=== PATIENT | female | born 1980 | race Hispanic/Latino ===

== ENCOUNTER 2016-12-29 13:59 | Emergency (ER) | payer OTHER ==
[~2016-12-29] VITALS: Ht 162.6 cm; Wt 71.2 kg
[~2016-12-29 13:59] MED LIST: BACLOFEN20 M1 PO; DOXYCYCLINE MO100 MG PO; FIORICET 300 MG1 CAP PO; FIORICET 325 MG1 TAB PO; FLEXERIL10 MG PO; MEDROL4 M2 PO; NASONEX0.05 MG/Ac NS; NORCO 325 MG-51 TAB PO; PERCOCET 325 MG1 TA2 PO; PERCOCET 5-3251 EACH PO; PREDNISONE 20MG20 MG PO; PREDNISONE20 M1 PO; PYRIDIUM200 MG PO; ROBAXIN-750750 M1 PO; TRAMADOL50 MG PO; VICODIN5-300 PO; VITAMIN C500 M3 PO
[2016-12-29] MEDS ORDERED: PERCOCET 5-3251 EACH PO (15:28)
--- NOTE | 2016-12-29 15:29 | ED NECK/BACK PAIN COMPLAINT ---
See Addendum History of Present Illness General Chief Complaint: Upper Respiratory Sx/Fever Stated Complaint: LBP/URI Source: patient, old records Exam Limitations: no limitations Vital Signs & Intake/Output Vital Signs & Intake/Output Vital Signs Date Time Temp Pulse Resp B/P Pulse O2 O2 Flow FiO2 Ox Delivery Rate 12/29 1536 97.7 89 18 115/67 97 Room Air 12/29 1517 99 12/29 1410 98.6 82 18 118/81 97 Room Air Allergies Coded Allergies: Penicillins (Severe, ANAPHYLAXIS 03/27/16) ibuprofen (From Motrin) (Intermediate, "SWELL UP" 03/27/16) Reconcile Medications Azithromycin (Zithromax) 250 MG TABLET 1 DP PO AD uri 2 the first day followed by 1 for days 2-5 Oxycodone HCl/Acetaminophen (Percocet 5-325 MG Tablet) 5 MG-325 MG TABLET 1 TAB PO TID PAIN Triage Note: PT TO ED FOR BILATERAL LOWER BACK PAIN WELL COLD LIKE SYMPTOMS. TENDER TO PALPATION ON L LOWER BACK. Triage Nurses Notes Reviewed? yes : No Patient currently breastfeeds: No HPI: 36-year-old female with chronic intermittent low back pain that started again 2 weeks ago. She has been seen here in the past for same. She is taking tramadol for her chronic pain without relief. It is throbbing aching severe sharp shooting reading the left lateral hip region. No recent trauma or injury. Patient also complains of URI symptoms as of the last 2 days, cough congestion runny nose, pressure in her sinuses left greater than right. Symptoms are moderate, no fever She has history of hysterectomy Past History Travel History Traveled to [place] past 21 day No Medical History Any Pertinent Medical History? 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 No Review of Systems Review of Systems Constitutional: Reports: see HPI. Eyes: Reports: no symptoms. Ears, Nose, Throat, Mouth: Reports: no symptoms. Respiratory: Reports: no symptoms. Cardiovascular: Reports: no symptoms. Gastrointestinal/Abdominal: Reports: no symptoms. Musculoskeletal: Reports: see HPI. Skin: Reports: no symptoms. Neurological/Psychological: Reports: no symptoms. All Other Systems: Reviewed and Negative Physical Exam Physical Exam Neck: normal inspection, supple, full range of motion, normal alignment Comments: Well-developed well-nourished no apparent distress. HEENT: Atraumatic, extraocular motion intact Mild clear rhinorrhea and tenderness of the frontal and maxillary sinus with clear rhinorrhea neck: Supple, no lymphadenopathy Back: Tenderness to the paravertebral musculature on the left side lower lumbar region with mild spasming noted. No midline tenderness. No deformity or signs of trauma. There is no rashes present. Range of motion is limited secondary to pain Straight leg raise is negative bilaterally. Bilateral lower extremities are neurovascularly intact with sensation and motor grossly intact. Gait is antalgic. Respiratory: No respiratory distress Abdomen: Soft nontender nondistended Extremities: No edema, full range of motion Neuro: Alert and oriented x3 Psych: Mood affect normal, normal memory normal judgment. Skin: Warm and dry, no rash on exposed skin Progress Differential Diagnosis: AAA, aortic dissection, C spine injury, carotid dissection, cauda equina syn, herniated disc, myofascial strain, pyelo/UTI, sciatica, spinal cord inj, thoracic outlet syn, T/L spine injury, ureterolithiasis Plan of Care: Current Medications Sig/Vinayak Start time Last Medication Dose Stop Time Status Admin Ketorolac 30 MG ONCE ONE 12/29 1530 UNVr Tromethamine 12/29 1531 (Toradol) Comments: Treated with IM Toradol abx for uri Departure Departure Disposition: HOME OR SELF CARE Condition: Stable Clinical Impression Primary Impression: Low back pain Qualifiers: Chronicity: acute Back pain laterality: left Sciatica presence: without sciatica Qualified Code: M54.5 - Low back pain Secondary Impressions: URI (upper respiratory infection) Qualifiers: URI type: unspecified URI Qualified Code: J06.9 - Acute upper respiratory infection, unspecified Referrals: UNKNOWN (PCP/Family) Additional Instructions: Take antibiotics for your infection as directed. Use [id number] multisystem cold medication as needed. Motrin and Tylenol as needed for fever. Drink plenty of fluids. Take medication for back pain and follow-up with your doctor tomorrow as scheduled Departure Forms: Customer Survey General Discharge Information Prescriptions: Current Visit Scripts Oxycodone HCl/Acetaminophen (Percocet 5-325 MG Tablet) 1 TAB PO TID #10 TAB Azithromycin (Zithromax) 1 DP PO AD #6 TAB 2 the first day followed by 1 for days 2-5
[2016-12-29] MEDS ORDERED: ZITHROMAX250 M2 PO (15:30)
[2016-12-29 15:36] VITALS: BP 115/67
== END 2016-12-29 15:38 ==
LOC: ERH 13:59
DX: M54.5 Low back pain (principal); J06.9 Acute upper respiratory infection, unspecified
CPT/HCPCS: 96372; J1885

== ENCOUNTER 2017-02-01 18:13 | Emergency (ER) | payer OTHER ==
[~2017-02-01 18:13] MED LIST changes: +ZITHROMAX250 M2 PO
[2017-02-01 18:42] LABS: ABSOLUTE BASOPHIL COUNT 0 /CUMM (0.0-0.2); ABSOLUTE EOSINOPHIL COUNT 0.1 /CUMM (0.0-0.7); ABSOLUTE LYMPH COUNT 2.4 /CUMM (1.2-3.4); ABSOLUTE MONOCYTE COUNT 0.4 /CUMM (0.10-0.60); BASOPHIL % 0.6 % (0.0-2.0); EOSINOPHIL % 0.8 % (0-5); GRANULOCYTE % 57.5 % (42.2-75.2); HEMATOCRIT 37.5 % (37-47); MEAN CORPUSCULAR HGB 30.3 PG (27.0-31.0); MEAN CORPUSCULAR HGB CONC 33.2 G/DL (33.0-37.0); MEAN CORPUSCULAR VOLUME 91.2 FL (81.0-99.0); MEAN PLATELET VOLUME 7.8 FL (7.4-10.4); PLATELET COUNT 210 /CUMM (130-400); RBC DISTRIBUTION WIDTH 12.3 % (11.5-14.5); RED BLOOD CELL CT 4.11 /CUMM (4.20-5.40); WHITE BLOOD CELL COUNT 6.9 /CUMM (4.8-10.8)
[2017-02-01] MEDS ORDERED: NABUMETONE500 M1 PO (18:47)
[2017-02-01] MEDS ORDERED: TRAMADOL HCL50 M1 PO (18:47)
--- NOTE | 2017-02-01 19:25 | ED GI/GU/ABDOMINAL COMPLAINT ---
History of Present Illness General Chief Complaint: Lower Extremity Injury Stated Complaint: PT BACK PAIN AND Source: patient Exam Limitations: no limitations Vital Signs & Intake/Output Vital Signs & Intake/Output Vital Signs Date Time Temp Pulse Resp B/P Pulse O2 O2 Flow FiO2 Ox Delivery Rate 02/01 2045 98.8 76 18 118/75 97 Room Air 02/015 99.0 85 22 121/70 96 Room Air ED Intake and Output 02/02 0000 02/01 1200 Intake Total Output Total Balance Patient 135 lb Weight Allergies Coded Allergies: Penicillins (Severe, ANAPHYLAXIS 03/27/16) ibuprofen (From Motrin) (Intermediate, "SWELL UP" 03/27/16) Reconcile Medications Nabumetone 500 MG TABLET 1 TAB PO BID PAIN (Reported) Oxycodone HCl/Acetaminophen (Percocet 5-325 MG Tablet) 5 MG-325 MG TABLET 1 TAB PO BID PAIN Tramadol HCl 50 MG TABLET 2 TAB PO Q6H PRN PAIN (Reported) Triage Note: PER PT BACK PAIN FOR MONTHS DENIES ANY SPECIFIC INJURY HAS SEEM PMD MONTHS AGO BUT ONLY WAS GIVEN PAIN MEDS NO IMAGING. PT REPORTS NO URINARY CO ASSOCIATED WITH PAIN AND HX OF HYST. Triage Nurses Notes Reviewed? yes ? n Is pt currently ? No Onset: Abrupt Duration: chronic pain Quality/Severity: moderate, sharpness, severe Radiation: no radiation No Modifying Factors: none HPI: 37-year-old female who comes into emergency room with complaints of chronic pain to her left lower back and left lower abdomen this been going on for over a year. Patient reports that she was diagnosed with endometriosis. Patient complete hysterectomy. Patient denies any fever chills vomiting. Denies any urinary symptoms. Patient reports the pain is also on a continuous basis. She comes into the emergency room for further evaluation today due to increased pain. Pain is consistent with previous pain. Denies any other associated symptoms at this time. (MADHURI RAM) Past History Travel History Traveled to [place] past 21 day No Medical History Any Pertinent Medical History? 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 No (MADHURI RAM) Review of Systems Review of Systems Constitutional: Reports: no symptoms. EENTM: Reports: no symptoms. Respiratory: Reports: no symptoms. Cardiovascular: Reports: no symptoms. GI: Reports: see HPI. Genitourinary: Reports: no symptoms. Musculoskeletal: Reports: see HPI. Skin: Reports: no symptoms. Neurological/Psychological: Reports: no symptoms. Hematologic/Endocrine: Reports: no symptoms. Immunologic/Allergic: Reports: no symptoms. All Other Systems: Reviewed and Negative (MADHURI RAM) Physical Exam Physical Exam General Appearance: well developed/nourished, no apparent distress, alert, awake Head: atraumatic, normal appearance Eyes: Bilateral: normal appearance, EOMI. Ears, Nose, Throat, Mouth: hearing grossly normal, moist mucous membrane Neck: normal inspection, full range of motion Respiratory: normal breath sounds, no respiratory distress Cardiovascular: regular rate/rhythm Gastrointestinal: soft, tenderness (llq) Back: normal inspection Extremities: normal range of motion Neurologic/Psych: awake, alert, oriented x 3, normal gait, normal mood/affect Skin: intact, normal color Core Measures ACS in differential dx? No Severe Sepsis Present: No Septic Shock Present: No (MADHURI RAM) Progress Differential Diagnosis: AMI, appendicitis, biliary colic, bowel obstruction, cholecystitis, diverticulitis, ectopic , gastritis, hepatitis, hernia, hemorrhoids, ischemic bowel, inflamm bowel dis, intrauterine , kidney stone, Cate-Ok tear, ovarian cyst, ovarian torsion, pancreatitis, PID/ cervicitis, peptic ulcer, PUD/GERD, perforated viscous, SBO, threatened AB, UTI/ pyelo Plan of Care: Orders Procedure Date/time Status URINALYSIS 02/02 1828 Complete LIPASE 02/02 1828 Complete COMPREHENSIVE METABOLIC PANEL 02/02 1828 Complete CBC WITHOUT DIFFERENTIAL 02/02 1828 Complete AMYLASE 02/02 1828 Complete Laboratory Tests 02/01/17 1915: Urine Color YEL, Urine Clarity CLEAR, Urine pH 6.5, Ur Specific Sunshine 1.020, Urine Protein NEG, Urine Ketones NEG, Urine Nitrite NEG, Urine Bilirubin NEG, Urine Urobilinogen 0.2, Ur Leukocyte Esterase NEG, Ur Microscopic EXAM NOT REQUIRED, Urine Hemoglobin NEG, Urine Glucose NEG 02/01/17 1836: Anion Gap 9, Estimated GFR > 60, BUN/Creatinine Ratio 22.5, Glucose 86, Calcium 9.2, Total Bilirubin 0.2, AST 21, ALT 33, Alkaline Phosphatase 68, Total Protein 6.9, Albumin 4.0, Globulin 2.9, Albumin/Globulin Ratio 1.4, Amylase < 30 L, Lipase 57, CBC w Diff NO MAN DIFF REQ, RBC 4.11 L, MCV 91.2, MCH 30.3, RDW 12.3 , MPV 7.8, Gran % 57.5, Lymphocytes % 34.7, Monocytes % 6.4, Eosinophils % 0.8, Basophils % 0.6, Absolute Granulocytes 4.0, Absolute Lymphocytes 2.4, Absolute Monocytes 0.4, Absolute Eosinophils 0.1, Absolute Basophils 0, PUBS MCHC 33.2 Diagnostic Imaging: Viewed by Me: CT Scan. Discussed w/RAD: CT Scan. Initial ED EKG: none Comments: EXAM TYPE: CAT - CT ABD & PELVIS W/O IV CONTRAS EXAMINATION: CT ABDOMEN AND PELVIS WITHOUT CONTRAST CLINICAL INFORMATION: Lower abdominal and back pain. COMPARISON: None. TECHNIQUE: Contiguous axial thin section helical images of the abdomen and pelvis were performed without oral or IV contrast. The data set was reformatted in the coronal and sagittal planes and reviewed on an independent workstation. DLP: 263 mGy-cm. FINDINGS: There is a benign calcified granuloma within the left lower lobe measuring approximately 3 mm. The visualized lung bases are otherwise clear. The visualized portions of the heart are unremarkable. The liver is of normal size and attenuation without focal lesions nor intrahepatic biliary ductal dilation. A normal gallbladder is identified. There is no wall thickening or discernible pericholecystic fluid. The spleen, pancreas, adrenal glands are unremarkable. Both kidneys are of normal size and attenuation without hydronephrosis or nephrolithiasis. There is no abdominal free fluid. There is neither mesenteric nor retroperitoneal lymphadenopathy. Normal unopacified loops of small and large bowel are identified. A normal appendix is identified. There is no pelvic free fluid. The urinary bladder is unremarkable. There is neither pelvic nor inguinal lymphadenopathy. Bone windows: Neither sclerotic nor lytic bone lesions are identified. IMPRESSION: No evidence for acute abdominal or pelvic inflammatory or infectious processes. Neither hydronephrosis nor nephrolithiasis. DICTATED BY: MARITZA PARKER MD (MADHURI ARM) Departure Departure Disposition: HOME OR SELF CARE Condition: Stable Clinical Impression Primary Impression: Abdominal pain Referrals: UNKNOWN (PCP/Family) Additional Instructions: Follow-up with your primary care doctor. Return if any concerns worsening symptoms. Take Percocet for pain. Follow-up with your primary care physician this week. Return to the emergency room at any time sooner if you have worsening of your symptoms or any other concerns. Please note that there might be incidental findings in your evaluation that are unrelated to the current emergency department visit. Please notify your primary care doctor about this emergency department visit in order to obtain and review all of the testing performed so that these incidental findings can be monitored as needed. If you were prescribed a narcotic use caution as this medication is highly addictive and will make you drowsy use for breakthrough pain only. No driving, drinking alcohol or operating machinary when taking. If you had an x-ray performed, please understand that some fractures may not be seen on the initial set of x-rays. If your symptoms persist you might need a repeat set of x-rays to check for such a fracture. If you had a laceration evaluated, please understand that foreign bodies such as glass or wood may not be visible to the naked eye or on plain x-rays. If the wound becomes red, swollen, increasingly more painful or if there is any drainage from the wound, please have it reevaluated by a physician for the possibility of a retained foreign body. Departure Forms: Customer Survey General Discharge Information Prescriptions: Current Visit Scripts Oxycodone HCl/Acetaminophen (Percocet 5-325 MG Tablet) 1 TAB PO BID #10 TAB Comments Patient clinically looks well. This pain has been going on for over a year. Patient is in no apparent distress here inEmergency room. There is no acute findings and workup. No complaints of vaginal discharge. Afebrile. Nontoxic appearing. No concern for PID. Patient has no acute findings on CT scan. Patient has been reevaluated multiple times and continued to remain in no distress. Patient will follow up with her primary care doctor. (MADHURI RAM) PA/ALUM MIXER Co-Sign Statement Statement: ED Attending supervision documentation- [] I saw and evaluated the patient. I have also reviewed all the pertinent lab results and diagnostic results. I agree with the findings and the plan of care as documented in the PA's/ALUM MIXER's documentation. [x] I have reviewed the ED Record and agree with the PA's/ALUM MIXER's documentation. [] Additions or exceptions (if any) to the PAs/ALUM MIXER's note and plan are summarized below: [] (BAIRON BALTAZAR DO)
[2017-02-01 20:45] VITALS: BP 118/75
--- NOTE | 2017-02-01 21:54 | CT SCAN REPORT ---
EXAMINATION: CT ABDOMEN AND PELVIS WITHOUT CONTRAST CLINICAL INFORMATION: Lower abdominal and back pain. COMPARISON: None. TECHNIQUE: Contiguous axial thin section helical images of the abdomen and pelvis were performed without oral or IV contrast. The data set was reformatted in the coronal and sagittal planes and reviewed on an independent workstation. DLP: 263 mGy-cm. FINDINGS: There is a benign calcified granuloma within the left lower lobe measuring approximately 3 mm. The visualized lung bases are otherwise clear. The visualized portions of the heart are unremarkable. The liver is of normal size and attenuation without focal lesions nor intrahepatic biliary ductal dilation. A normal gallbladder is identified. There is no wall thickening or discernible pericholecystic fluid. The spleen, pancreas, adrenal glands are unremarkable. Both kidneys are of normal size and attenuation without hydronephrosis or nephrolithiasis. There is no abdominal free fluid. There is neither mesenteric nor retroperitoneal lymphadenopathy. Normal unopacified loops of small and large bowel are identified. A normal appendix is identified. There is no pelvic free fluid. The urinary bladder is unremarkable. There is neither pelvic nor inguinal lymphadenopathy. Bone windows: Neither sclerotic nor lytic bone lesions are identified. IMPRESSION: No evidence for acute abdominal or pelvic inflammatory or infectious processes. Neither hydronephrosis nor nephrolithiasis.
[2017-02-01] MEDS ORDERED: PERCOCET 5-3251 EACH PO (22:37)
== END 2017-02-01 22:50 ==
LOC: ERH 18:13
PROVIDERS: Physician Assistant Medical
DX: R10.32 Left lower quadrant pain (principal)
CPT/HCPCS: 74176; 81003; 81025; 96374

== ENCOUNTER 2017-04-09 15:14 | Emergency (ER) | payer OTHER ==
[~2017-04-09] VITALS: Ht 162.6 cm; Wt 62.6 kg
[~2017-04-09 15:14] MED LIST changes: +NABUMETONE500 M1 PO; +TRAMADOL HCL50 M1 PO
--- NOTE | 2017-04-09 16:05 | ED NECK/BACK PAIN COMPLAINT ---
History of Present Illness General Chief Complaint: Upper Extremity Problem Stated Complaint: PT NECK AND SHOULDER PAIN Source: patient Exam Limitations: no limitations Vital Signs & Intake/Output Vital Signs & Intake/Output Vital Signs Date Time Temp Pulse Resp B/P B/P Pulse O2 O2 Flow FiO2 Mean Ox Delivery Rate 04/09 1629 98.0 70 18 112/68 98 Room Air Room Air 04/09 1525 97.2 71 16 101/67 97 Room Air Allergies Coded Allergies: Penicillins (Severe, ANAPHYLAXIS 03/27/16) ibuprofen (From Motrin) (Intermediate, "SWELL UP" 03/27/16) Reconcile Medications Methocarbamol (Robaxin) 500 MG TABLET 1 TAB PO TID PRN MUSCLE STRAIN Methylprednisolone. (Medrol) 4 MG TAB.DS.PK 1 DP PO AD NECK PAIN 6 on day 1 then reduce by one tablet daily until gone Tramadol HCl 50 MG TABLET 2 TAB PO Q6H PRN PAIN (Reported) Triage Note: PT REPORTS NECK PAIN LEFT SIDE X 1 WEEK. PT STGATES SHE HAS BEEN TAKING TRAMADOL AND TYLENOL FOR THE PAIN Triage Nurses Notes Reviewed? yes Onset: Gradual Duration: week(s): (2) Timing: remote history Quality/Severity: moderate Location: C-spine, paraspinous muscles Radiation: none : No Patient currently breastfeeds: No HPI: Patient is a 37-year-old female presenting to the emergency department with chief complaint of left-sided neck pain that radiates into the left shoulder that thing going on for the past 2 weeks. 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 Denies numbness or tingling. Pain is achy and throbbing. Has been taking tramadol as pain was to prescribe with little to no relief. She reports that she still feels stiff. No fevers or chills. No visual changes. No headaches. Denies nausea or vomiting or abdominal pain or chest pain. It is worse with movement. (ROB REILLY) Past History Travel History Traveled to [place] past 21 day No Medical History Any Pertinent Medical History? 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 No (ROB REILLY) Review of Systems Review of Systems Constitutional: Reports: no symptoms. Comments Review of systems: See HPI, All other systems negative. Constitutional, no chills fever or weight loss HEENT: No visual changes no sore throat no congestion Cardiovascular: No chest pain ,palpitation , orthopnea or ankle swelling Skin, no jaundice no rashes Respiratory: No dyspnea cough sputum or hemoptysis : No dysuria No hematuria Muscle skeletal: no back pain Neurologic: No numbness no confusion Psych: No stress anxiety or depression,. Heme/endocrine: No bruising no bleeding no polyuria or polydipsia Immunology: No splenectomy or history of AIDS (ROB REILLY) Physical Exam Physical Exam General Appearance: well developed/nourished, no apparent distress, alert, awake , comfortable Neck: normal inspection, supple, limited range of motion, muscle spasm, tenderness Comments: Well-developed well-nourished person in no acute distress HEENT: Pupils equally round and reactive to light and accommodation. Nose is atraumatic. Neck: Supple, no lymphadenopathy, tender to palpation along the left cervical paraspinal muscles. Positive muscle spasm. Limited range of motion with lateral bending of the neck secondary to left-sided neck pain. No C-spine tenderness. No pain to palpation over the right cervical paraspinal muscles. Back: Nontender Cardiovascular: normal JVP Respiratory: No respiratory distress. Extremity: No edema Neuro: Alert oriented x3, motor sensory normal Skin: No appreciable rash on exposed skin, skin is warm and dry. Psych: Mood and affect is normal, memory and judgment is normal. (ROB REILLY) Progress Differential Diagnosis: CERVICAL STRAIN, HERNIATED DISC, CONTUSION, MUSCLE STRAIN, CERVICAL FRACTURE Plan of Care: Current Medications Sig/Vinayak Start time Last Medication Dose Stop Time Status Admin Methylprednisolone 125 MG ONCE ONE 04/09 1615 UNVr (Solu Medrol) 04/09 161 Departure Departure Time of Disposition: 1604 Disposition: HOME OR SELF CARE Condition: Stable Clinical Impression Primary Impression: Cervical strain Qualifiers: Encounter type: initial encounter Qualified Code: S16.1XXA - Strain of muscle, fascia and tendon at neck level, initial encounter Referrals: UNKNOWN (PCP/Family) Additional Instructions: Follow-up with your primary care physician call appointment. Take Robaxin as prescribed with muscle spasms. Take MEDROL DOSE PACK as prescribed to help with inflammation. START THE MEDROL DOSE PACK TOMORROW. Return for worsening symptoms or concerns. Departure Forms: Customer Survey General Discharge Information Prescriptions: Current Visit Scripts Methylprednisolone. (Medrol) 1 DP PO AD #1 DP 6 on day 1 then reduce by one tablet daily until gone Methocarbamol (Robaxin) 1 TAB PO TID PRN MUSCLE STRAIN #20 TAB (ROB REILLY) PA/BAR HOST Co-Sign Statement Statement: ED Attending supervision documentation- [] I saw and evaluated the patient. I have also reviewed all the pertinent lab results and diagnostic results. I agree with the findings and the plan of care as documented in the PA's/BAR HOST's documentation. [x] I have reviewed the ED Record and agree with the PA's/BAR HOST's documentation. [] Additions or exceptions (if any) to the PAs/BAR HOST's note and plan are summarized below: [] (BAIRON BALTAZAR DO
[2017-04-09] MEDS ORDERED: ROBAXIN500 M1 PO (16:08)
[2017-04-09] MEDS ORDERED: MEDROL4 M2 PO (16:08)
[2017-04-09 16:29] VITALS: BP 112/68
== END 2017-04-09 16:49 ==
LOC: ERH 15:14
DX: S16.1XXA Strain of muscle, fascia and tendon at neck level, initial encounter (principal)
CPT/HCPCS: 96372; J2930